=== PATIENT | male | born 1965 | race Caucasian/White ===

== ENCOUNTER 2020-05-27 10:00 | Outpatient (CLI) | payer BC, SELFPAY | END 2020-05-27 10:30 | disposition home or self-care (01) | LOC: SLB 10:00 → EDSTATUS 06-03 10:49 | PROVIDERS: ATTEND Internal Medicine | DX: Z20.828 Contact with and (suspected) exposure to other viral communicable diseases (principal) | CPT/HCPCS: U0003-CS ==